=== PATIENT | female | born 1990 | race Caucasian/White ===

== ENCOUNTER 2019-07-19 06:30 | Inpatient (IN) ==
[~2019-07-19 06:30] MED LIST: D5 1/2 NS 1000 ML 1,000 ML IV ONE; D5 1/2 NS 1L W PITOCIN 20 UNITS/L 20 UNITS/1,000 ML BAG IV ONE; D5LR 1L W PITOCIN 10 UNITS/L 10 UNITS/1,000 ML BAG IV ONE; PITOCIN ONE
[2019-07-19] MEDS ORDERED: D5 1/2 NS 1000 ML 1,000 ML IV SCH (06:41)
[2019-07-19] MEDS ORDERED: REGLAN INJ 10 MG VIAL IVP PRN (06:41)
[2019-07-19] MEDS ORDERED: MORPHINE SULFATE INJ 2 MG INJ IVP PRN (06:41)
[2019-07-19] MEDS ORDERED: D5LR 1L W PITOCIN 10 UNITS/L 10 UNITS/1,000 ML BAG IV PRN (06:41)
[2019-07-19] MEDS ORDERED: PITOCIN IVP ONE (06:41)
[2019-07-19] MEDS ORDERED: PHENERGAN INJ 25 MG IM PRN ×2 (06:41→13:23)
[2019-07-19] MEDS ORDERED: NUBAIN INJ 200 MG VIAL MULTIDOSE IVP PRN (06:41)
[2019-07-19 07:15] LABS: URIC ACID 3.7 mg/dL (2.6-6.0)
--- NOTE | 2019-07-19 07:16 | DR.OB ---
OB Quick Note - Assessment/Plan Assessment/Plan: L&D 07/19/19 at 7:00am S-No complaint. O-Afebrile,VSS JSV=177 with good LTV, +accel, no decel. CTX=none CVX=3cm/50%/-1/VTX AROM with clear fluid. IUPC and FSE place. A-IUP at 38 4/7 weeks for induction PIH P-Begin pitocin induction F/U labs Anticipate
[2019-07-19] MEDS ORDERED: LR 1000 ML IV 1,000 ML IV ONE (07:56)
[2019-07-19] MEDS ORDERED: NAROPIN EPIDURAL 0.2% + FENTANYL 90MCG 60 ML EPI ONE (08:43)
[2019-07-19] MEDS ORDERED: MORPHINE SULFATE INJ 2 MG INJ ONE (08:43)
[2019-07-19] MEDS ORDERED: FENTANYL INJ 100 mcg ONE (09:07)
[2019-07-19] MEDS ORDERED: EPHEDRINE SULFATE INJ ONE (10:50)
--- NOTE | 2019-07-19 12:05 | DR.OB ---
OB Quick Note - Assessment/Plan Assessment/Plan: L&D 07/19/19 at 11:55am Pitocin=16mu/min. S-No complaiints. S/P epidural. O-Afebrile,VSS DHE=772 with good LTV, +accel, no decel. CTX=q 1 1/2 min., about 35-55mmHg CVX=6cm/90%/0 A-IUP at 38 4/7 weeks for induction PIH P-Cont. pitocin induction Anticipate
--- NOTE | 2019-07-19 13:23 | DR.OB ---
OB Quick Note - Assessment/Plan Assessment/Plan: Delivery Note [employer] 07/19/19 at 1:05pm Patient complete and pushing. Head delivered over intact perineum. No nuchal cord. Nose and mouth bulb suctioned. Body delivered over intact perineum. Cord clamped x 2 and cut. handed to attendant. Cord sent for gases. Placenta delivered spontaneously / intact / 3 vessel cord. No CVX tears. A small midline second degree tear noted and repaired with 0-vicryl in usual fashion. Viable female infant, VTX/OA, wt=6'11" and 9/10, stable to NBN. Mother stable to NBN. FPF=[id number].
[2019-07-19] MEDS ORDERED: DERMOPLAST PAIN RELIEF SPRAY TOP PRN (14:28)
[2019-07-19] MEDS ORDERED: ADACEL or BOOSTRIX TDaP VACCINE IM ONE (14:28)
[2019-07-19] MEDS ORDERED: MILK OF MAGNESIA PO PRN (14:28)
[2019-07-19] MEDS ORDERED: AMBIEN PO PRN (14:28)
[2019-07-19] MEDS: MOTRIN TAB 800 MG PO PRN ×2 (16:16→23:18)
[2019-07-19] MEDS: D5 1/2 NS 1000 ML 1,000 ML with PITOCIN 20 UNITS IV SCH ×4 (16:16→22:21)
[2019-07-19] MEDS: BETADINE SOLN TOP SCH ×2 (16:19→21:18)
[2019-07-20 05:05] LABS: HEMATOCRIT 26.5 % (36.0-47.0); HEMOGLOBIN 8.8 g/dL (12.0-16.0)
[2019-07-20] MEDS: D5 1/2 NS 1000 ML 1,000 ML with PITOCIN 20 UNITS IV SCH ×2 (05:41)
[2019-07-20] MEDS: BETADINE SOLN TOP SCH (05:41)
[2019-07-20] MEDS ORDERED: DEPO-PROVERA CONTRACEPTIVE INJ IM ONE (07:27)
[2019-07-20] MEDS: MOTRIN TAB 800 MG PO PRN (08:58)
[2019-07-20] MEDS ORDERED: PRENATAL PLUS PO SCH (09:00)
[2019-07-20 14:15] VITALS: BP 124/67
== END 2019-07-20 15:15 | disposition home or self-care (01) | DRG 807 ==
LOC: LD 06:35 → MED/SURG 14:51
PROVIDERS: ADMIT Specialist; ATTEND Specialist
CPT/HCPCS: 36415; 59409; 83615; 84450; 84460; 84550; 85014; 85018; 85384; 85610; 85730; A4216; A4222; J1050; J2270; J2590; J3010; J3490; J7120; S0197; S5010